=== PATIENT | female | born 1950 | race Caucasian/White ===

== ENCOUNTER → 2019-06-05 | Outpatient (CLI) | payer OTHER ==
[~2019-06-05] MED LIST: DIAZ5TAB4 PO; SYNTHROID PO
== END | disposition home or self-care (01) ==
LOC: RAH 10:44
PROVIDERS: ATTEND Family Medicine
DX: Z12.31 Encounter for screening mammogram for malignant neoplasm of breast (principal); N63.24 Unspecified lump in the left breast, lower inner quadrant
CPT/HCPCS: 77067

== ENCOUNTER → 2020-07-21 | Outpatient (CLI) | payer SELFPAY | END | disposition home or self-care (01) | LOC: RAH 16:11 | PROVIDERS: ATTEND Family Medicine | DX: Z13.6 Encounter for screening for cardiovascular disorders (principal); J98.4 Other disorders of lung | CPT/HCPCS: 75571 ==

== ENCOUNTER → 2020-07-23 | Outpatient (CLI) | payer OTHER | END | disposition home or self-care (01) | LOC: OIH 12:29 | PROVIDERS: ATTEND Family Medicine | DX: R91.8 Other nonspecific abnormal finding of lung field (principal); J98.4 Other disorders of lung; M51.34 Other intervertebral disc degeneration, thoracic region; Z90.49 Acquired absence of other specified parts of digestive tract | CPT/HCPCS: 71250 ==

== ENCOUNTER → 2020-10-12 | Outpatient (CLI) | payer OTHER | END | disposition home or self-care (01) | LOC: RAH 13:37 | PROVIDERS: ATTEND Family Medicine | DX: Z12.31 Encounter for screening mammogram for malignant neoplasm of breast (principal) | CPT/HCPCS: 77067 ==

== ENCOUNTER → 2021-06-14 | Outpatient (CLI) | payer OTHER | END | disposition home or self-care (01) | LOC: RAH 12:43 | PROVIDERS: ATTEND Family Medicine | DX: J43.9 Emphysema, unspecified (principal); J84.10 Pulmonary fibrosis, unspecified; R93.89 Abnormal findings on diagnostic imaging of other specified body structures; K76.89 Other specified diseases of liver; Z90.49 Acquired absence of other specified parts of digestive tract | CPT/HCPCS: 71250 ==

== ENCOUNTER → 2022-03-29 | Outpatient (CLI) | payer OTHER | END | disposition home or self-care (01) | LOC: RAH 09:04 | PROVIDERS: ATTEND Family Medicine | DX: Z12.31 Encounter for screening mammogram for malignant neoplasm of breast (principal) | CPT/HCPCS: 77067 ==